=== PATIENT | male | born 1960 | race Caucasian/White ===

== ENCOUNTER → 2022-07-28 08:55 | Outpatient (CLI) | payer OTHER, MEDICAID, SELFPAY ==
[2022-07-28 09:29] LABS: COVID19 -Nasal RAPID Negative (Negative)
== END ==
PROVIDERS: Referring Provider Orthopaedic Surgery; Visit Provider Orthopaedic Surgery
DX: Z20.822 Contact with and (suspected) exposure to COVID-19; Z11.59 Encounter for screening for other viral diseases
CPT/HCPCS: 87635; C9803

== ENCOUNTER 2022-07-30 08:08 | Day surgery (SDC) | payer OTHER, MEDICAID, SELFPAY ==
[2022-07-29 09:43] VITALS: BMI 26.4
[2022-07-30] VITALS (11 sets, daily range): BP systolic 112–140; BP diastolic 65–93; PULSE 60–88; RESP 12–24; TEMP 36.2–37.1; O2SAT 17–98; BMI 26.4
[2022-07-30] MEDS: LACTATED RINGERS 1,000 ML 42 ML IV (09:17)
--- NOTE | 2022-07-30 09:39 | PM.PREOP ---
Pre-operative Note COVID-19 COVID-19 status: Negative Result date/Date tested (Pos, Neg/Pending): 07/28/22 Interval Note History & Physical reviewed/Exam performed by Physician: Yes Changes to H&P: No
[2022-07-30] MEDS: CEFAZOLIN 2 GM/100 ML PREMIX 100 ML IV (10:10)
--- NOTE | 2022-07-30 10:12 | SUR.PREOP ---
[address] Maldonado see anesthesia note r/t procedure
--- NOTE | 2022-07-30 10:54 | SUR.OPER ---
Lateral on padded OR bed with dietrich bag positioner, head on pillow, gel axillary roll in place, bottom leg bent with gel pad under knee to foot, upper leg straight and supported with pillows. right arm secured in shoulder positioning suspension device. non-operative arm secured on padded arm board. Safety belt at hip, tape over blanket securing lower legs.
[2022-07-30] MEDS: EPINEPHrine 1 MG/10 ML SYRINGE INJ (11:15)
--- NOTE | 2022-07-30 11:47 | P.OP_ITS ---
Operative Date/Time/Diagnoses Date of procedure: 07/30/22 Time of procedure: 11:47 Pre-op diagnosis: Right shoulder rotator cuff tear and biceps tendinitis Post-op diagnosis: same Procedure & Clinicians Procedure: 1. Right shoulder arthroscopic rotator cuff repair. 2. Right shoulder arthroscopic biceps tenodesis. 3. Right shoulder arthroscopic subacromial decompression. Same procedure as scheduled: Yes Indications: The patient is a 62-year-old man who has had prolonged right shoulder pain with an MRI that indicates both a rotator cuff tear and biceps tendinitis. He is agreed to surgery after discussion of the risks benefits and alternatives. Risks discussed included but were not limited to: Failure to improve, stiffness, infection, nerve damage, deep venous thrombosis, pulmonary embolism, stroke, myocardial infarction, permanent paralysis and . Surgeon: Ravi Anderson Fern Cutter: Kike Yadav Click Yes if Unassisted: No Anesthesia Type: General, Peripheral nerve block and Local Operative Notes Findings: 1. Normal glenohumeral cartilage 2. Mild glenohumeral labral fraying 3. Intact glenohumeral ligaments 4. Intact subscapularis with mild intrasubstance splitting 5. Thickened frayed and flattened biceps tendon 6. Supraspinatus tendon notable for a 1 cm crescent tear just behind the biceps 7. Intact infraspinatus 8. Axillary pouch notable for small osteophyte formation on the inferior humeral head 9. Bursal rotator cuff notable for the tear described above in the supraspinatus. 10. Type 3 acromion with traction spur and significant impingement lesion 11. AC joint not visualized due to lack of preoperative symptoms 12. Exam under anesthesia notable for full range of motion and no evidence of pathologic laxity. Closure Type: primary Specimen(s): none sent Prosthetic devices, grafts, tissues, transplants, or devices: Two Arthrex corkscrew double threaded rotator cuff anchors. Applied: implant(s) Estimated Blood Loss (mL): 10 Blood products transfused: none Procedure in detail: The patient was seen in the preoperative area where he identified his right shoulder as the operative site and this was marked with my initials. He underwent an interscalene block and was taken to the operating room and placed on the operating room table in a supine position where he underwent a general anesthetic. His arms were examined under anesthesia. Received preoperative antibiotics. A director multimedia-out was performed. The patient was repositioned in the left lateral decubitus position with an axillary roll and stabilized there with a dietrich bag and adhesive tapes. All pressure points were well padded. The right arm was prepared from the fingertips to the base of the neck with ChloraPrep in the usual fashion and draped through sterile drapes. The arm was placed in 10 lb of balanced skin suspension. The subcutaneous landmarks were outlined on the skin with a marking pen and portal sites selected. The posterior portal was created for the arthroscope and diagnostic arthroscopy performed in the glenohumeral joint with the result given above. We then withdrew the arthroscope and placed in the subacromial bursa through the posterior portal. A lateral working portal was created at the midpoint of the rotator cuff tear using needle localization. A shaver was inserted and used to perform bursectomy for visualization. The type 3 acromion was converted to a type 1 using a cutting block technique due to the extensive impingement lesion there. The bur was also used to abrade the greater tuberosity to bleeding bone. Two anchors were placed in the exposed area of the greater tuberosity the 1st right at the anterior margin of the tear which was used to place a mattress suture through the frayed biceps and a 2nd simple suture through the biceps. These were also placed through the rotator interval above the biceps. A 2nd anchor was placed in the center portion of the tear and the 2 sutures from this were placed across the crescent shaped tear which was 1 cm anterior to posterior in a simple suture fashion. These sutures were tied to repair the tear in the anterior sutures were tied to fixate the anterior portion of the rotator cuff tear and to perform a biceps tenodesis. Integrity of the rotator cuff tear repair was verified from posterior view, lateral view and intra-articular. An anterior working portal was placed in the joint and the biceps was cut from its insertion on the superior glenoid. This was cleaned to remove a stump in the joint. The arthroscopic equipment was then removed. The wounds were closed with 4-0 Monocryl and Steri-Strips. Dressings of sterile 4x4s, an ABD in adhesive dressing were applied followed by a sling and the patient was transferred to the recovery room in good condition having tolerated the procedure well. The services of Mr. Yadav were required during surgery for assistance in positioning, using the camera to free my hands for other activities during surgery and to assist in placement of the anchors. Without a skilled expanded function dental assistant this procedure could not have been accomplished in an expedient, safe fashion for the patient. Complications: none Post-operative Condition: stable Disposition: PACU Plan for aftercare: The patient will be maintained on a standard small size rotator cuff tear protocol with sling wear and passive range of motion only for the 1st 6 weeks. He will be allowed to lift 1-2 lb with his forearm in front of his body to complete activities of daily living such as eating, reading and using a computer.
[2022-07-30] MEDS: OXYCODONE IR 5 MG TABLET PO (12:15)
== END 2022-07-30 12:55 | disposition home or self-care (01) ==
PROVIDERS: Referring Provider Orthopaedic Surgery; Visit Provider Orthopaedic Surgery
PROC: (CPT 29827; principal; 2022-07-30 10:15)
DX: M75.121 Complete rotator cuff tear or rupture of right shoulder, not specified as traumatic (principal); M75.21 Bicipital tendinitis, right shoulder; M25.711 Osteophyte, right shoulder; M25.811 Other specified joint disorders, right shoulder
CPT/HCPCS: 29827; 29826; 29828; 64450; J0171; J0690; J1100; J1885; J2250; J2405; J2704; J3010